=== PATIENT | male | born 1960 | race Caucasian/White ===

== ENCOUNTER 2022-07-19 13:24 | Outpatient (CLI) | payer BC, SELFPAY | END 2022-07-19 13:25 | disposition home or self-care (01) | LOC: ANHSURGERY 13:29 | PROVIDERS: PCP Internal Medicine; Visit Provider Urology | DX: R97.20 Elevated prostate specific antigen [PSA] (principal) | CPT/HCPCS: 87086 ==

== ENCOUNTER 2022-07-26 00:44 | Day surgery (SDC) | payer BC, SELFPAY ==
[2022-07-18 15:05] VITALS: BMI 25.1
--- NOTE | 2022-07-18 15:09 | PC.NURSE ---
Report to the Outpatient Waiting Room, entrance under the green pavilion located off [facility], at time 8:30 on date 07/26/22. Planned Procedure Time: 10:30. Time changes happen often and if your time is changed the preop area will call you the afternoon before. - You and your visitor will be asked to self-screen and do not enter if you have any COVID symptoms. - A mask is optional within the hospital at this time. Patients may have clear liquids (water, carbonated beverages, clear teas, apple juice) until 3 hours prior to surgery with a maximum of 20 ounces. - No food from midnight until time of surgery Take the following medications with a SIP of water the morning of surgery: N/A DO NOT STOP ANY OF YOUR OTHER PRESCRIPTION MEDICATIONS PRIOR TO SURGERY EXCEPT THE FOLLOWING Medications to discontinue per physician: N/A Date to take last dose: N/A Please no make-up, nail malay, hairspray, perfume, deodorant, or body powder the day of surgery. No jewelry (including any body piercings) or valuables the day of surgery, leave them at home. Please take a shower or bath the night before, or the morning of, surgery with an antibacterial soap. Wear comfortable, loose fitting clothing. - Jewelry must be removed prior to entering the operating room. Rings and piercings that are not removed may be cut off. - The hospital will not accept responsibility for valuables. - Please leave all valuables, including medications, at home the day of surgery. If you are going home after surgery, a licensed regional refrigerated cdl truck driver must drive you home. - NO public transportation without another adult if you receive anesthesia. - We recommend that an adult stay with you for 24 hours following discharge. - We also recommend that you do not drive, make important decision, drink alcoholic beverages, or take any drugs that were not prescribed by your health care provider for at least 24 hours after your discharge time. Follow any additional instructions given to you from your surgeon. If you or anyone in your household have experienced Covid symptoms in the past week, please notify your surgeon or the nurse liaison at the phone number below for possible testing. Telephone instructions given to PT - MARY LEMONS and asked if any additional questions and then verbalized understanding. Patient advised to call surgeon office or pre surgery nurse liaison [phone] if any additional questions.
--- NOTE | 2022-07-25 09:33 | WPDANESEPPF ---
Anes - Initial Pre Proc Eval Procedure: Operation Date: 07/26/22 10:30 Proposed Procedures p Trans Rectal Ultrasound Fusion Guided Prostate Biopsy - Simone Valentin MD Date/Time: 07/25/22 09:33 Surgeon: Simone Valentin MD Pre Op Diagnosis: elevated PSA Patient Data Age: 62 Gender: M Height: 1.78 m Weight: 79.4 kg Allergies Allergy/AdvReac Type Severity Reaction Status Date / Time Penicillins Allergy Unknown DOES NOT Verified 07/18/22 15:05 REMEMBER Home Medications Medication Instructions Recorded Confirmed Type No Home Medications 07/18/22 07/18/22 History Patient hx anesthesia problems: none Family hx anesthesia problems: none Results Review: All pre-operative results and documents have been reviewed as part of the pre-operative evaluation. [facility] Past Medical History Medical History (Updated 05/21/19 @ 21:19 by Polina Rust MD) Appendicitis Restless legs syndrome Surgical History Surgical History (Updated 05/21/19 @ 21:17 by Polina Rust MD) History of appendectomy Family History Family History (Updated 05/21/19 @ 21:15 by Polina Rust MD) Sibling Malignant neoplasm of prostate Other Hypertension Social History Social History (Updated 07/26/22 @ 10:08 by Av Ronquillo DO) Social History: Smoking packs per day: 1 Smoking cigarettes per day: 20.0 Years smoked: 20 Smoking pack-years: 20.00 Smoking status: Former smoker Tobacco type: cigarettes and cigars Second hand tobacco smoke exposure: Yes Smoking end date: 03/13/17 Additional smoking assessment comments: QUIT CIGARETTES MANY YRS AGO, NOW SMOKE A CIGAR EVERY ONCE IN A WHILE Alcohol intake: current Alcohol use details: 3-6/day Substance use: never Substance use type: does not use Living arrangements: with family Occupation/Education: occupation Gender identity (if verbalized by the patient): Male Spiritual care concerns: No Anes - Eval Final PreProcedure Day of Procedure 07/25/22 09:33 Patient weight: overweight Heart: regular rate and rhythm Lungs: clear to auscultation Airway: Mallampati scale class II Neurological: alert and oriented Last oral intake: >/= 8 hours ASA classification: III Emergent: no Anesthetic plan: proceed Anesthesia type and monitoring: general GIVS and standard monitoring Results Review: All pre-operative results and documents have been reviewed as part of the pre-operative evaluation. Informed Consent: The patient's anesthetic plan and its attendant risks and benefits were discussed with the patient/family/POA. Questions were solicited and answers provided to the satisfaction of the patient/family/POA.
[2022-07-26 09:28] VITALS: BP 126/75; PULSE 57; RESP 14; TEMP 36.3; O2SAT 100
[2022-07-26] MEDS: LACTATED RINGERS 1,000 ML 30 ML IV CONT (09:31)
--- NOTE | 2022-07-26 09:59 | WPDHPUPDATE1 ---
History and Physical Update Update Date/Time: 07/26/22 09:59 History and Physical has been reviewed, including an updated exam of the patient. There are NO changes in the patient's condition. Risks, benefits, and alternatives have been discussed and questions answered. Patient agrees to proceed with procedure. Proceed with uronav us and prostate biopsy
[2022-07-26] MEDS: ceFAZolin 2 GM/D5W 50 ML 2 GM/50 ML BAG IVPB (10:50)
--- NOTE | 2022-07-26 11:11 | W.PM.PROC2 ---
Procedure Note - Detailed Date of Procedure 07/26/22 Pre-op Diagnosis elevated PSA Post-op Diagnosis Same Procedure Performed uronav us and prostate biopsy Surgeon Simone Valentin MD Anesthesia General Description of Procedure Patient was taken to the operative suite correctly identified. Once anesthesia was obtained he was placed in decubitus position. The transrectal ultrasound probe was inserted. MRI image was fused onto the ultrasound machine. Patient had 2 regions of interest. I took 3 cores from each of these regions. I then took 12 standard cores. Patient tolerated procedure well without any complications. Patient is taken recovery stable condition. He is to call the office for his path results in 1 week. This completes dictation please send a copy to my office Drains No Packing No Pathology Yes Complications No immediate complications Condition Stable Disposition PACU
[2022-07-26 11:16] VITALS: BP 133/78; PULSE 68; RESP 12; TEMP 36.4; O2SAT 100
[2022-07-26 11:30] VITALS: BP 147/87; PULSE 68; RESP 14; O2SAT 100
[2022-07-26 11:45] VITALS: BP 157/88; PULSE 64; RESP 18; O2SAT 100
[2022-07-26 12:00] VITALS: BP 114/73; PULSE 54; RESP 18
[2022-07-26 12:30] VITALS: BP 136/74; PULSE 62; RESP 18
== END 2022-07-26 12:50 | disposition home or self-care (01) ==
PROVIDERS: PCP Internal Medicine; Visit Provider Urology
PROC: (CPT 55700; principal; 2022-07-26 10:30)
DX: C61 Malignant neoplasm of prostate (principal); Z72.0 Tobacco use
CPT/HCPCS: 55700; 76872; 88342; G0416; J0690; J2250; J2405; J2704; J3010; J7120

== ENCOUNTER 2022-10-31 07:31 | Outpatient (CLI) | payer BC, SELFPAY ==
--- NOTE | 2022-10-31 08:33 | ECG_ITS ---
Measurements Intervals [place] Rate: 45 P: 70 MO: 189 QRS: 15 QRSD: 110 T: 19 QT: 461 QTc: 402 Interpretive Statements SINUS BRADYCARDIA OTHERWISE NORMAL ECG NO PREVIOUS ECG AVAILABLE FOR COMPARISON Electronically Signed On 10-31-2022 12:06:30 CDT by Jamaal Haile M.D.
[2022-10-31 09:16] LABS: Basophils Percent Auto 0.4 % (0.2-1.2); Eosinophils Absolute Auto 0.1 K/mm3 (0-0.3); Eosinophils Percent Auto 1.2 % (0-4.4); Hematocrit 47.5 % (42.0-52.0); Hemoglobin 15.7 g/dL (14.0-18.0); Immature Granulocyte Absolute 0.02 K/mm3 (0.00-0.031); Immature Granulocyte Percent A 0.3 % (0-0.5); Lymphocytes Percent Auto 17.8 % (18.3-44.2); Mean Corpuscular HGB Conc 33.1 g/dl (32-36); Mean Corpuscular Hemoglobin 30.8 pg (26-34); Mean Corpuscular Volume 93.3 fl (80-100); Mean Platelet Volume 9.4 fl (7.4-10.4); Monocytes Absolute Auto 0.6 K/mm3 (0.1-0.6); Monocytes Percent Auto 7.5 % (2.6-8.5); Neutrophils Absolute Auto 5.3 K/mm3 (1.3-6.7); Neutrophils Percent Auto 72.8 % (45.5-73.1); Platelet Count Result 175 k/mm3 (150-375); Red Blood Count 5.09 M/mm3 (4.6-6.20); Red Cell Distribution Width 13.5 % (11.5-14.5); White Blood Count 7.3 K/mm3 (4.5-10.0)
[2022-10-31 09:29] LABS: Alanine Aminotransferase 15 U/L (6-50); Albumin Level 4.1 g/dL (3.5-5.1); Alkaline Phosphatase 73 U/L (38-126); Anion Gap 3 mmol/L (8-16); Aspartate Amino Transferase 24 U/L (17-59); Bilirubin,Total 0.5 mg/dL (0.2-1.3); Blood Urea Nitrogen 13 mg/dL (9-20); Calcium 8.8 mg/dL (8.4-10.2); Carbon Dioxide 31 mmol/L (22-30); Chloride 103 mmol/L (98-107); Estimated Glomerular Filt Rate > 60; Glucose 97 mg/dL (65-110); Potassium 4.8 mmol/L (3.4-5.0); Sodium 137 mmol/L (137-145)
[2022-10-31 09:32] LABS: Prothrombin Time 13.4 Seconds (11.1-14.7)
== END 2022-10-31 07:32 | disposition home or self-care (01) ==
LOC: ANHSURGERY 07:34
PROVIDERS: PCP Internal Medicine; Visit Provider Urology
DX: C61 Malignant neoplasm of prostate (principal); Z01.818 Encounter for other preprocedural examination
CPT/HCPCS: 36415; 80053; 85025; 85610; 85730; 87086; 93005

== ENCOUNTER 2022-11-15 00:51 | Day surgery (SDC) | payer BC, SELFPAY ==
--- NOTE | 2022-10-31 07:57 | PC.NURSE ---
Report to the Outpatient Waiting Room, entrance under the green pavilion located off [facility], at time _0600 on date __11/15/22 . Planned Procedure Time: __0730 . Time changes happen often and if your time is changed the preop area will call you the afternoon before. - You and your visitor will be asked to self-screen and do not enter if you have any COVID symptoms. - A mask is optional within the hospital at this time. Patients may have clear liquids (water, carbonated beverages, clear teas, apple juice) until 3 hours prior to surgery with a maximum of 20 ounces. - No food from midnight until time of surgery - Infants may have breast milk until 4 hours before surgery, formula 6 hours prior to surgery. - Children will be allowed to drink immediately following surgery. If applicable, please bring a bottle or sippy cup to assist with drinking. Juice, water, soda, and popsicles are readily available. For infants on formula, please bring formula the day of surgery. Pacifiers are allowed. Take the following medications with a SIP of water the morning of surgery: NONE DO NOT STOP ANY OF YOUR OTHER PRESCRIPTION MEDICATIONS PRIOR TO SURGERY ?EXCEPT THE FOLLOWING Medications to discontinue per physician NONE Please no make-up, nail estonian, hairspray, perfume, deodorant, or body powder the day of surgery. No jewelry (including any body piercings) or valuables the day of surgery, leave them at home. Please take a shower or bath the night before, or the morning of, surgery with an antibacterial soap. Wear comfortable, loose fitting clothing. Children are encouraged to wear pajamas. - Jewelry must be removed prior to entering the operating room. Rings and piercings that are not removed may be cut off. - The hospital will not accept responsibility for valuables. - Please leave all valuables, including medications, at home the day of surgery. If you are going home after surgery, a licensed refrigerated national truck driver must drive you home. - NO public transportation without another adult if you receive anesthesia. - We recommend that an adult stay with you for 24 hours following discharge. - We also recommend that you do not drive, make important decision, drink alcoholic beverages, or take any drugs that were not prescribed by your health care provider for at least 24 hours after your discharge time. For Pediatric surgeries, we recommend two adults accompany the child home. Follow any additional instructions given to you from your surgeon. If you or anyone in your household have experienced Covid symptoms in the past week, please notify your surgeon or the nurse liaison at the phone number below for possible testing. VERBAL AND WRITTEN instructions given to ____PATIENT and asked if any additional questions and then verbalized understanding. Patient advised to call surgeon office or pre surgery nurse liaison [phone] if any additional questions.
[2022-10-31 08:13] VITALS: BP 126/78; PULSE 63; RESP 18; TEMP 37; O2SAT 98; BMI 25.0
--- NOTE | 2022-11-11 14:14 | WPDANESEPPF ---
Anes - Initial Pre Proc Eval Procedure: Operation Date: 11/15/22 07:30 Proposed Procedures p Robotic Assisted Nerve Sparing Prostatectomy with Bilateral Pelvic Lymph Node Dissection - Simone Valentin MD Date/Time: 11/11/22 14:14 Surgeon: Simone Valentin MD Pre Op Diagnosis: prostate CA Patient Data Age: 62 Gender: M Height: 1.75 m Weight: 77 kg Last Vital Signs Temp 98.6 F 10/31/22 08:13 Pulse 63 10/31/22 08:13 Resp 18 10/31/22 08:13 BP 126/78 10/31/22 08:13 Pulse Ox 98 10/31/22 08:13 O2 Del Method Room Air 10/31/22 08:13 Allergies Allergy/AdvReac Type Severity Reaction Status Date / Time Penicillins Allergy Unknown as a child Verified 11/15/22 06:50 Home Medications Medication Instructions Recorded Confirmed Type No Home Medications 07/18/22 11/15/22 History Patient hx anesthesia problems: none Family hx anesthesia problems: none Results Review: All pre-operative results and documents have been reviewed as part of the pre-operative evaluation. [facility] Past Medical History Medical History (Updated 11/15/22 @ 07:21 by Simone Valentin MD) Appendicitis Restless legs syndrome Surgical History Surgical History (System 08/26/22 @ 10:52 by Bacilio Verma) History of appendectomy Family History Family History (System 08/26/22 @ 10:52 by Bacilio Verma) Sibling Malignant neoplasm of prostate Mother Family history of blood dyscrasia Sibling Malignant neoplasm of prostate, Onset Age: 57 Other Hypertension Social History Social History (System 08/26/22 @ 10:52 by Bacilio Verma) Social History: Smoking packs per day: 1 Smoking cigarettes per day: 20.0 Years smoked: 20 Smoking pack-years: 20.00 Smoking status: Former smoker Tobacco type: cigarettes Second hand tobacco smoke exposure: Yes Smoking end date: 03/13/99 Additional smoking assessment comments: CURRENTLYL SMOKES A CIGAR ONCE A WK Alcohol intake: current Drinks per week: 10 Alcohol use details: BEER Substance use: never Substance use type: does not use Living arrangements: with family Occupation/Education: occupation Gender identity (if verbalized by the patient): Male Spiritual care concerns: No Anes - Eval Final PreProcedure Day of Procedure 11/11/22 14:14 Patient weight: normal Heart: regular rate and rhythm Lungs: clear to auscultation Airway: Mallampati scale class II Neurological: alert and oriented Last oral intake: >/= 8 hours ASA classification: III Emergent: no Anesthetic plan: proceed Anesthesia type and monitoring: general ETT and standard monitoring Results Review: All pre-operative results and documents have been reviewed as part of the pre-operative evaluation. Informed Consent: The patient's anesthetic plan and its attendant risks and benefits were discussed with the patient/family/POA. Questions were solicited and answers provided to the satisfaction of the patient/family/POA.
[2022-11-15] VITALS (15 sets, daily range): BP systolic 101–159; BP diastolic 61–90; PULSE 61–81; RESP 12–20; TEMP 35.9–37.3; O2SAT 95–100; BMI 24.6
[2022-11-15] MEDS: LACTATED RINGERS 1,000 ML 30 ML IV CONT ×3 (06:55→12:20)
--- NOTE | 2022-11-15 07:19 | PM.IMHP ---
H&P: HPI History of Present Illness Date/Time: 11/15/22 07:19 Chief Complaint: Adenocarcinoma of prostate Narrative: 62 yr old male with adenocarcinoma of prostate. Has decided on robotic assist nerve sparing prostatectomy with possible plnd. Review of Systems Review of Systems: All systems reviewed & are unremarkable except as noted in HPI and below PMFSH Past Medical History Medical History Appendicitis Restless legs syndrome Surgical History Surgical History History of appendectomy Family History Family History Sibling Malignant neoplasm of prostate Mother Family history of blood dyscrasia Sibling Malignant neoplasm of prostate, Onset Age: 57 Other Hypertension Social History Social History Social History: Smoking packs per day: 1 Smoking cigarettes per day: 20.0 Years smoked: 20 Smoking pack-years: 20.00 Smoking status: Former smoker Tobacco type: cigarettes Second hand tobacco smoke exposure: Yes Smoking end date: 03/13/99 Additional smoking assessment comments: CURRENTLYL SMOKES A CIGAR ONCE A WK Alcohol intake: current Drinks per week: 10 Alcohol use details: BEER Substance use: never Substance use type: does not use Living arrangements: with family Occupation/Education: occupation Gender identity (if verbalized by the patient): Male Spiritual care concerns: No Meds Home Medications and Allergies Home Medications Medication Instructions Recorded Confirmed Type No Home Medications 07/18/22 11/15/22 History Allergies Allergy/AdvReac Type Severity Reaction Status Date / Time Penicillins Allergy Unknown as a child Verified 11/15/22 06:50 Exam Const: General: cooperative, healthy appearing and comfortable Chest: Chest palpation & inspection: normal inspection of the chest Resp: Effort & Inspection: normal respiratory effort Cardio: Rate: regular rate Rhythm: regular rhythm GI: Inspection: normal to inspection Assessment and Plan Assessment and plan (1) Prostate cancer: Code(s): C61 - Malignant neoplasm of prostate Status: Acute Assessment and Plan: Proceed with robotic assist nerve sparing prostatectomy with possible plnd
--- NOTE | 2022-11-15 07:21 | WPDHPUPDATE1 ---
History and Physical Update Update Date/Time: 11/15/22 07:21 History and Physical has been reviewed, including an updated exam of the patient. There are NO changes in the patient's condition. Risks, benefits, and alternatives have been discussed and questions answered. Patient agrees to proceed with procedure.
[2022-11-15] MEDS: ceFAZolin 2 GM/D5W 50 ML 2 GM/50 ML BAG IVPB (07:29)
[2022-11-15] MEDS: BUPivacaine HCL 0.5% PF 30 ML VIAL 20 ML INFILTRATE (08:49)
--- NOTE | 2022-11-15 11:31 | P.OP_ITS ---
Procedure Note - Detailed Date of Procedure 11/15/22 Pre-op Diagnosis prostate CA Post-op Diagnosis Same Procedure Performed Robotic assisted nerve-sparing prostatectomy with left pelvic lymph node dissection, extensive bowel adhesiolysis Surgeon Simone Valentin MD Anesthesia General Description of Procedure Patient was taken to the operative suite correctly identified. Once anesthesia was obtained he was placed in dorsal lithotomy position and prepped draped usual sterile fashion. Sixteen Montserratian Alfaro catheter was placed. A supraumbilical incision was made carried down to the rectus fascia. Veress needle was inserted. The abdomen was insufflated to 15 mmHg pressure. Camera trocar was placed under direct vision. Appropriate working ports were then placed. Patient was placed in steep Trendelenburg and the robot was docked. Upon entering the abdominal cavity was noted that he had extensive adhesions along the left floor with a sigmoid was as well as the cul-de-sac and especially the right lower quadrant. We spent at least 30-35 minutes taking down adhesions. We then did a posterior approach. Seminal vesicles were dissected down their entirety. The vas were transected. Plane between the prostate and rectum was developed. Bladder was taken down. Space of Retzius was developed. Puboprostatic were isolated and transected. Dorsal venous complex was isolated using 0 Vicryl. This was then secured to the pubic bone. Bladder neck was spared. The posterior fascia was incised in the previously dissected seminal vesicles and vas were isolated. Bilateral nerve-sparing was performed. Pedicles were clipped. Dorsal venous complex was transected as was the urethra. Specimen was placed in an Endo-Catch bag. Patient had quite a bit of inflammatory reaction where his adhesions were on the right side. Was difficult to dissect out the node packet. Thus we simply did a left pelvic lymph node dissection. Boundaries were the obturator nerve, external iliac vein, Conor's ligament, and bifurcation of the vessels. Clips were placed proximally distally. Lymph nodes were placed in the Endo-Catch bag also. A Yon stitch was then placed. The urethra was anastomosed to the bladder neck using V lock suture in a running fashion. There was good approximation mucosa. Sixteen Montserratian Alfaro was placed inflated with 10 cc of sterile water. Bladder was filled with 150 cc. There was no evidence of extravasation. Bladder was drained. ANTHONY drain was then placed through the 3rd port site. This was secured. Robot was undocked. Specimen was brought out through the midline incision. Rectus fascia was closed using 0 Vicryl in running fashion. Subcuticular stitches were placed. Incisions were anesthetized 1% lidocaine. Patient tolerated procedure well without any complications and was taken recovery stable condition. All lap count needle count sponge counts were correct. Blood loss 100 cc. This completes dictation. Please send a copy this op note to my office Estimated Blood Loss 100 Drains Yes Packing No Pathology Yes Complications No immediate complications Condition Stable Disposition PACU
--- NOTE | 2022-11-15 14:02 | ADMGEN ---
This patient, Rai Harmon, was admitted to [facility] Surg Room 315-01. Patient/family oriented to hospital policies and general routines including ID bracelet, bed and alarms, visiting hours, pain management, procedures, bathroom and other care routines, personal items, smoking policy, room service/diet, and visiting hours. Information on how to activate the Rapid Response Team has been discussed. Patient/Family are encouraged to report perceived risks to care and to ask questions if they do not understand what they are told or what they should do.
[2022-11-15] MEDS: LACTATED RINGERS 1,000 ML 125 ML IV CONT ×2 (14:30→23:15)
[2022-11-15] MEDS: HYDROcodone/acetaminophen (*CRX) 5-325 MG TABLET 1 TAB PO ×2 (16:17→23:18)
[2022-11-15] MEDS: KETOROLAC 30 MG/ML VIAL (*BKC) IV PUSH (18:30)
[2022-11-15] MEDS: PROPARACAINE HCL 0.5% 15 ML OPHTH SOLN 1 DROP EACH EYE (18:40)
[2022-11-16 03:26] VITALS: BP 125/72; PULSE 66; RESP 18; TEMP 36.2; O2SAT 95
[2022-11-16] MEDS: KETOROLAC 30 MG/ML VIAL (*BKC) IV PUSH (04:49)
[2022-11-16 06:48] LABS: Hematocrit 39.6 % (42.0-52.0); Hemoglobin 13.5 g/dL (14.0-18.0)
[2022-11-16 07:03] LABS: Anion Gap 5 mmol/L (8-16); Blood Urea Nitrogen 15 mg/dL (9-20); Calcium 7.7 mg/dL (8.4-10.2); Carbon Dioxide 29 mmol/L (22-30); Chloride 101 mmol/L (98-107); Estimated CRCL calculation 69 ml/min; Estimated Glomerular Filt Rate > 60; Glucose 92 mg/dL (65-110); Potassium 3.8 mmol/L (3.4-5.0); Sodium 135 mmol/L (137-145)
[2022-11-16] MEDS: levoFLOXacin 500 MG TABLET PO (08:29)
[2022-11-16] MEDS: LACTATED RINGERS 1,000 ML 125 ML IV CONT (08:30)
[2022-11-16 11:26] VITALS: BP 130/70; PULSE 58; RESP 18; TEMP 36.6; O2SAT 99
--- NOTE | 2022-11-16 12:17 | WPDUROPN2 ---
Progress Note: A&P Assessment and Plan (1) Prostate cancer: Code(s): C61 - Malignant neoplasm of prostate Status: Acute Assessment and Plan: Ok to discharge home with rodriguez/leg bag. Teach catheter care. Patient to have cystogram next week before catheter can be removed. Will determine ANTHONY drain output and ANTHONY drain removal prior to discharge. Subjective Subjective Date/Time Seen: 11/16/22 12:17 Post Op day: 1 Interval history: S/P Robotic assisted nerve-sparing prostatectomy with left pelvic lymph node dissection, extensive bowel adhesiolysis. Patient doing well, tolerating diet, activity and pain. Drain output is bloody but a small amount. Urine is light pink/clear yellow. He would like to go home today. Review of Systems Cardiovascular: Cardiovascular: Denies chest pain Respiratory: Respiratory: Reports no additional respiratory complaints Gastrointestinal: Gastrointestinal: Reports abdominal pain (at incision sites only), Reports constipation, Denies nausea and Denies vomiting Genitourinary: Genitourinary: Denies hematuria and Denies flank pain Exam Const: General: cooperative and comfortable Resp: Effort & Inspection: normal respiratory effort Cardio: Rate: regular rate GI: Inspection: incision (all are well approximated, no drainage, edema or redness present) and other (ANTHONY drain draining bloody drainage to gravity, dressing dry and intact) GI Palp: Yes Soft to palpation and Yes Tenderness to palpation present (GI) (at incision sites only) : General: Yes no CVA tenderness Penis: Yes normal penis Meatus: meatus normal Urinary Catheter: Urinary Catheter: patent and draining, urine clear and urine pink Extrem: Right lower extremity: no edema Left lower extremity: no edema Objective Data Vital Signs Vital Signs: Vital Signs - 24 hr 11/15/22 12:30 11/15/22 12:45 11/15/22 13:00 Temperature Pulse Rate 66 68 71 Respiratory Rate 14 14 12 Blood Pressure 142/76 H 133/80 138/90 Pulse Oximetry 97 100 95 Oxygen Delivery Room Air Room Air Room Air 11/15/22 13:15 11/15/22 13:30 11/15/22 13:50 Temperature 98.1 F 97.1 F L Pulse Rate 73 69 68 Respiratory Rate 14 14 14 Blood Pressure 134/84 135/67 125/78 Pulse Oximetry 96 95 95 Oxygen Delivery Room Air Room Air 11/15/22 14:05 11/15/22 14:35 11/15/22 15:35 Temperature 97 F L 96.7 F L 96.9 F L Pulse Rate 69 69 67 Respiratory Rate 16 16 18 Blood Pressure 130/77 124/75 140/77 Pulse Oximetry 96 97 98 Oxygen Delivery 11/15/22 19:26 11/15/22 23:26 11/16/22 03:26 Temperature 99.1 F 98.6 F 97.2 F L Pulse Rate 63 66 66 Respiratory Rate 20 18 18 Blood Pressure 101/61 118/74 125/72 Pulse Oximetry 95 96 95 Oxygen Delivery 11/16/22 08:20 11/16/22 11:26 Temperature 97.8 F Pulse Rate 58 L Respiratory Rate 18 Blood Pressure 130/70 Pulse Oximetry 99 Oxygen Delivery Room Air Intake/Output Intake/Output: Intake & Output 11/13/22 11/14/22 11/15/22 11/16/22 23:59 23:59 23:59 23:59 Intake Total 2090 1490 Output Total 1070 705 Balance 1020 785 Meds/Results Medications: Active Medications Generic Name Dose Route Start Last Admin Trade Name Freq PRN Reason Stop Dose Admin Hydrocodone Bitart/Acetaminophen 1 tab 11/15/22 13:41 11/15/22 23:18 Hydrocodone/Acetaminophen (*Crx) 5-325 Mg Tablet PO 1 tab Q6H PRN Administration Pain Rated 1-3 Hydrocodone Bitart/Acetaminophen 2 tab 11/16/22 14:00 Hydrocodone/Acetaminophen (*Crx) 5-325 Mg Tablet PO Q6H PRN Pain Rated 4-6 Artificial Tears 1 drop 11/15/22 16:22 Artificial Tears Ophth Soln 15 Ml Bottle EACH EYE Q2H PRN Dry Eye(s) Hyoscyamine 0.125 mg 11/15/22 13:41 Hyoscyamine Sulfate 0.125 Mg Tablet SUBLINGUAL Q4H PRN Bladder Spasm Lactated Ringer's 1,000 mls @ 125 mls/hr 11/15/22 13:41 11/16/22 08:30 Lr - Lactated Ringers Iv IV CONT 125 mls/hr .Q8H RAMONA Administration
[2022-11-16] MEDS: HYDROcodone/acetaminophen (*CRX) 5-325 MG TABLET 1 TAB PO (12:38)
--- NOTE | 2022-11-16 13:41 | WPDANESPN ---
Anes - Prog Note Post-Op Date/Time: 11/16/22 13:41 Cardiovascular status: normal Respiratory status: normal Airway patency: baseline Mental status: baseline Post-Op hydration status: normal Vital Signs: Last Vital Signs Temp 36.6 C 11/16/22 11:26 Pulse 58 L 11/16/22 11:26 Resp 18 11/16/22 11:26 BP 130/70 11/16/22 11:26 Pulse Ox 99 11/16/22 11:26 O2 Del Method Room Air 11/16/22 08:20 O2 Flow Rate 6 11/15/22 11:49 Pain Score (VAS): 04/22 I/O: Intake & Output 11/15/22 11/16/22 11/16/22 23:59 07:59 15:59 Intake Total 1431 316 1493 Output Total 925 455 590 Balance 315 -205 770 Laboratory Tests 11/16/22 06:10 11/16/22 06:10 11/16/22 06:10 Hgb 13.5 L Hct 39.6 L Sodium 135 L Potassium 3.8 Chloride 101 Carbon Dioxide 29 Anion Gap 5 L BUN 15 Creatinine 1.00 Estim Creat Clear Calc 69 Estimated GFR > 60 Glucose 92 Calcium 7.7 L Post-procedural complaints: none Patient Feedback: Patient satisfied with anesthetic care.
== END 2022-11-16 14:40 | disposition home or self-care (01) ==
LOC: ANHSURGERY 06:10 → ANH3MEDSUR 13:51
PROVIDERS: PCP Internal Medicine; Visit Provider Urology
PROC: 0VT04ZZ Resection of Prostate, Percutaneous Endoscopic Approach (ICD-10-PCS; CPT 55867; principal; 2022-11-15 07:30)
DX: C61 Malignant neoplasm of prostate (principal); Z72.0 Tobacco use
CPT/HCPCS: 55866; 38571; S2900; 36415; 80048; 85014; 85018; 86850; 86900; 86901; 88309; 88342; A9270; J0690; J1100; J1170; J1885; J2250; J2405; J2704; J3010; J7030; J7120

== ENCOUNTER 2022-11-23 09:38 | Outpatient (CLI) | payer BC, SELFPAY ==
--- NOTE | ~2022-11-23 | XR_ITS ---
EXAMINATION: XR cystogram DATE: 11/23/2022 10:18 INDICATION: Prostate cancer status post prostatectomy. TECHNIQUE: Water-soluble contrast was gravity-infused through the patient's Alfaro catheter. Multiple fluoroscopic images were obtained. Fluoroscopy exposure time was 0.3 minutes. The total number of kelsea ges was 10. COMPARISON: None. FINDINGS: There is no extraluminal leakage of contrast. There is no ureteral reflux. IMPRESSION: 1. Normal cystogram. Reviewed, dictated and finalized at location A. IMPRESSION: 1. Normal cystogram.
== END 2022-11-23 09:39 | disposition home or self-care (01) ==
LOC: ANHIMG 09:41
PROVIDERS: PCP Internal Medicine; Visit Provider Urology
DX: C61 Malignant neoplasm of prostate (principal)
CPT/HCPCS: 51600; 74430; Q9967